=== PATIENT | female | born 1990 | race Caucasian/White ===

== ENCOUNTER → 2017-07-31 | Outpatient (CLI) | payer BC, SELFPAY | PROVIDERS: Visit Provider Internal Medicine | DX: R00.2 Palpitations (principal); R07.9 Chest pain, unspecified; R06.00 Dyspnea, unspecified; R94.31 Abnormal electrocardiogram [ECG] [EKG]; I49.3 Ventricular premature depolarization; G47.10 Hypersomnia, unspecified; R06.83 Snoring | CPT/HCPCS: 78452; 93017; A9502 ==

== ENCOUNTER → 2017-08-27 13:33 | Outpatient (CLI) | payer BC, SELFPAY ==
--- NOTE | 2017-08-27 13:41 | CA_ITS ---
PROCEDURE: 2-D M-mode and color Doppler study INDICATIONS FOR THE TEST: Chest pain X COPD Heart Murmur Tobacco Smoking PalpitationsX Fatigue Syncope Edema Hypertension Diabetes Mellitus Rheumatic Fever SOB DOEXObesity Hyperlipidemia Family History HD Additional History PATIENT INFORMATION HEIGHT: 67 WEIGHT:183 GENDER: Female B/P:150/80 2-D/M-MODE INTERPRETATION: 2-D MEASUREMENTS OBSERVED VALUES IN CMS Right Ventricular Dimension (RVDd) 1.9 Interventricular Septum (Thickness)(IVsd) .8 Left Ventricular Internal Dimensions(LVIDd) 5.7 Left Ventricular Posterior Wall (Thickness)(LVPWd) .8 Aortic Root 3.3 Aortic Cusp Separation 2.0 Left Atrial Dimensions (LAD) 3.0 2D 1. Left atrium is normal size, left ventricle is normal size, there is no concentric left ventricular hypertrophy, visually estimated ejection fraction 55% with no obvious regional wall motion abnormality. 2. The right atrium and right ventricle are normal size and contractility. 3. The aortic, mitral and tricuspid valves are grossly normal. 4. The pulmonic valve is poorly visualized. 5. No significant pericardial effusion noted DOPPLER INTERROGATION: Doppler interrogation of the aortic, mitral and tricuspid valvular presence of mild mitral and tricuspid regurgitation, tricuspid regurgitant jet velocity is insufficient for calculation of the right ventricular systolic pressure, diastolic parameters are within normal range. CONCLUSION: 1. Normal left ventricular size, preserved left ventricular systolic function, visually estimated ejection fraction 55% with no obvious regional wall motion abnormality, diastolic parameters are within normal range. 2. Mild mitral and tricuspid regurgitation. 3. No significant pericardial effusion noted.
== END ==
PROVIDERS: PCP Family Medicine; Visit Provider Internal Medicine
DX: R06.02 Shortness of breath (principal); R06.00 Dyspnea, unspecified; R06.01 Orthopnea; R07.89 Other chest pain; R07.8 Other chest pain; K21.9 Gastro-esophageal reflux disease without esophagitis; I10 Essential (primary) hypertension; R06.83 Snoring; I49.3 Ventricular premature depolarization; R00.2 Palpitations; G47.9 Sleep disorder, unspecified; R40.0 Somnolence
CPT/HCPCS: 93306

== ENCOUNTER → 2017-10-30 11:58 | Outpatient (CLI) | payer BC, SELFPAY ==
--- NOTE | 2017-10-30 12:05 | XR_ITS ---
EXAM: XR thoracic spine 3V HISTORY: ITS.REASON: NENA THORACIC BACK PAIN COMPARISON: None FINDINGS: Normal alignment. No fracture or dislocation. No lytic or blastic change. No significant degenerative change. The disc spaces are preserved. IMPRESSION: Negative thoracic spine
--- NOTE | 2017-10-30 12:05 | XR_ITS ---
EXAM: XR lumbar spine min 4V HISTORY: ITS.REASON: NENA THORACIC BACK PAIN ORDERING PHYSICIAN: Jojo Cox PATIENT AGE: 27 years COMPARISON: None FINDINGS: Normal alignment. No fracture or dislocation. No lytic or blastic change. There are minor hypertrophic changes of the facets superiorly at S1. IMPRESSION: No acute finding. Minimal facet hypertrophic change at S1
== END ==
PROVIDERS: PCP Family Medicine; Visit Provider Nurse Practitioner
DX: M54.6 Pain in thoracic spine (principal)
CPT/HCPCS: 72072; 72110

== ENCOUNTER → 2017-11-05 09:36 | Outpatient (CLI) | payer BC, SELFPAY ==
--- NOTE | 2017-11-05 09:52 | MR_ITS ---
MR lumbar spine wo con, MR 3-d myelogram/MRCP HISTORY: Low back pain with bilateral leg tingling and numbness ITS.REASON: BILATERAL LOW BACK PAIN ORDERING PHYSICIAN: Pablito Cook MD PATIENT AGE: 27 years COMPARISON: Radiograph of 10/30/2017 TECHNIQUE: Standard multiplanar multiecho sequences are performed without contrast. 3-D MIP and myelographic images are also rendered and reviewed FINDINGS: The spinal cord ends at the L1 level. There is normal alignment. No canal stenosis, disc herniation, or significant degenerative change evident. IMPRESSION: Negative MRI of the lumbar spine
== END ==
PROVIDERS: PCP Family Medicine; Visit Provider Family Medicine
DX: M54.5 Low back pain (principal)
CPT/HCPCS: 72148; 76376

== ENCOUNTER → 2017-11-14 10:43 | Outpatient (CLI) | payer BC, SELFPAY ==
--- NOTE | 2017-11-14 10:45 | US_ITS ---
US transvaginal Ordering Physician: Gabe Momin MD Patient Age: 27 years: Female HISTORY: ITS.REASON: pelvic painprevious surgery with uterus and left ovary removed Mostly right-sided pain for 2 months TECHNIQUE: Transvaginal pelvic ultrasound COMPARISON :Previous pelvic ultrasound June 2015. FINDINGS Uterus and the left ovary are surgically absent The right ovary is enlarged with probable hemorrhagic cyst.. . The right ovary measures 5 cm x 4 cm to 3.6 cm. Heterogeneous hypoechoic area within the right ovary measures 2.5 times over 3.1 length overall. Suspect it may reflect a hemorrhagic cyst but would benefit from follow-up study in 2-3 months particularly if persistent pelvic symptoms.. adequate color Doppler flow overall to the right ovary.. However the suspected hemorrhagic cyst with no significant color Doppler flow. There does appear to be a minimal vaguely evident l fluid collection just adjacent towards posterior margin the right ovary.. This fluid collection Measures 2.4 x 1.3 cm IMPRESSION: 1. Uterus and left ovary surgically absent Right ovary is enlarged and contains 3.1 x 2.5 cm heterogeneous hypoechoic area which most likely reflects a generous size hemorrhagic cyst . Also note Small fluid collection adjacent to this ovary. . Would suggest follow-up study in 2-3 months to further evaluate particularly if persistent pelvic symptoms.
== END ==
PROVIDERS: PCP Family Medicine; Visit Provider Obstetrics & Gynecology
DX: R10.2 Pelvic and perineal pain (principal)
CPT/HCPCS: 76830

== ENCOUNTER → 2017-12-13 13:09 | Outpatient (CLI) | payer BC, SELFPAY ==
--- NOTE | 2017-12-13 13:14 | US_ITS ---
US transvaginal HISTORY: Follow-up ovarian cyst ITS.REASON: PELVIC PAIN ORDERING PHYSICIAN: Gabe Momin MD PATIENT AGE: 27 years COMPARISON: 11/14/2017 FINDINGS: The uterus and left ovary have been surgically removed. The right ovary measures 4 x 2.6 x 3 cm. There are 2 cysts within the right ovary which measure 1.5 x 1.2 and 1.7 x 1.2 cm the previously noted hemorrhagic cyst has decreased in size from 3 x 2.6 cm to 1.5 x 1.2 cm. No cul-de-sac fluid evident. IMPRESSION: 1. Decrease in size of right hemorrhagic ovarian cyst. 2. There is an additional 1.7 cm simple cyst of the right ovary. 3. Prior hysterectomy and left oophorectomy
== END ==
PROVIDERS: PCP Family Medicine; Visit Provider Obstetrics & Gynecology
DX: R10.2 Pelvic and perineal pain (principal)
CPT/HCPCS: 76830

== ENCOUNTER → 2017-12-28 10:10 | Outpatient (CLI) | payer BC, SELFPAY ==
--- NOTE | 2017-12-28 12:57 | CT_ITS ---
CT abdomen pelvis w con CLINICAL INDICATION: Right lower quadrant pain ITS.REASON: ABDOMINAL PAIN ORDERING PHYSICIAN: Kenneth Prado MD PATIENT AGE: 27 years COMPARISON: None TECHNIQUE: Axial images obtained with sagittal and coronal reformats. All CT scans at the facility use one or more dose reduction, viz: automated exposure control; ma/kV adjustment per patient size (including targeted exams where dose is matched to indication; i.e. head); or iterative reconstruction technique. PROCEDURE: Oral Contrast: None IV Contrast: 75 mL's of Isovue-370. FINDINGS: The lung bases are clear. There is a nonspecific 4 mm isodensity in the hepatic dome laterally to small to categorize. The liver is otherwise unremarkable. Prior cholecystectomy without ductal dilatation. The spleen, adrenal glands, and pancreas are unremarkable. There is mild prominence of both renal pelves and ureters right greater than left. No definite ureteral calculus is evident in the urinary bladder is nondistended. This is nonspecific and could be related to prior obstruction or infection. Unremarkable appendix. No intestinal obstruction or free air. There has been prior hysterectomy. No pelvic mass or abnormal fluid collection or focal inflammatory change. There is a small circular area of increased density with central fat superior to the urinary bladder consistent with a small area of fat necrosis measuring 12 mm. IMPRESSION: 1. No acute intra-abdominal or pelvic findings. 2. Unremarkable appendix. 3. Mild ectasia of both renal collecting systems and ureters of unknown etiology. No obstructing stone or mass is evident at this time. This could be due urinary tract infection or prior obstruction.
== END ==
PROVIDERS: PCP Family Medicine; Visit Provider Family Medicine
DX: R10.31 Right lower quadrant pain (principal); R10.13 Epigastric pain
CPT/HCPCS: 74177; Q9967

== ENCOUNTER → 2017-12-29 08:45 | Outpatient (CLI) | payer BC, SELFPAY ==
[2017-12-29 08:52] LABS: MANUAL DIFFERENTIAL MANUAL DIFFERENTIAL (MANUAL DIFF)
[2017-12-29 09:24] LABS: Basophils # 0.1 K/mm3 (0-0.2); Basophils % 0.8 % (0.1-2.0); Eosinophils # 0.2 K/mm3 (0.0-0.4); Eosinophils % 2.2 % (0.1-12.0); Hematocrit 42.8 % (37.0-47.0); Hemoglobin 14.6 g/dL (12.2-16.2); Lymphocytes % 25.4 K/mm3 (10-50); Mean Corpuscular HGB Conc 34.1 g/dL (31.8-35.4); Mean Corpuscular Hemoglobin 33.1 pg (27.0-31.2); Monocytes # 0.5 K/mm3 (0.1-1.0); Monocytes % 6.2 % (1.7-9.3); Neutrophils # 5.1 K/mm3 (1.8-7.8); Neutrophils % 65.4 % (37.0-80.0); Platelet Count 262 K/mm3 (142-424); Red Blood Count 4.41 M/mm3 (4.20-5.40); Red Cell Distribution Width 11.9 % (11.5-17.5); White Blood Count 7.7 K/mm3 (4.8-10.8)
[2017-12-29 11:36] LABS: Alanine Aminotransferase 21 U/L (12-78); Albumin/Globulin Ratio 1.3 (1.1-1.8); Alkaline Phosphatase 68 U/L (46-116); Amylase 40 U/L (25-125); Anion Gap 15.1 mEq/L (5-15); Aspartate Amino Transferase 13 U/L (15-37); Bilirubin,Total 0.5 mg/dL (0.2-1.0); Blood Urea Nitrogen 10 mg/dL (7-18); Calcium 9.3 mg/dL (8.5-10.1); Carbon Dioxide 23 mmol/L (21.0-32.0); Chloride 102 mmol/L (98-107); Creatinine,Serum 0.81 mg/dL (0.55-1.02); Estimated Glomerular Filt Rate 85 ml/min (>60); GFR (African American) 103 ML/MIN (>60); Globulin 3.1 gm/dl (1.3-3.2); Glucose 100 mg/dL (74-106); Lipase 60 u/L (73-393); Potassium 4.1 mmoL/L (3.5-5.1); Sodium 136 mmol/L (136-145); Total Protein,Serum 7.1 gm/dL (6.4-8.2)
[2017-12-29 12:42] LABS: Lymphocytes % 34 % (10-50); Monocytes % 3 % (2-9); Neutrophils % 63 % (42-76); Platelet Estimate Normal; RBC Morphology Normal; Total Cells Counted 100
[2017-12-30 06:42] LABS: Iron 69 ug/dL (27-159); UIBC 227 ug/dL (131-425)
[2017-12-30 08:11] LABS: Folate 4.7 ng/mL (>3.0)
[2017-12-31 06:11] LABS: Iron Saturation 23 % (15-55); Vitamin B12 377 pg/mL (232-1245); Vitamin D 25 Hydroxy 43.3 ng/mL (30.0-100.0)
== END ==
PROVIDERS: Visit Provider Nurse Practitioner
DX: R10.31 Right lower quadrant pain (principal); R10.13 Epigastric pain; D64.9 Anemia, unspecified; E55.9 Vitamin D deficiency, unspecified; E53.8 Deficiency of other specified B group vitamins
CPT/HCPCS: 36415; 80053; 82150; 82607; 82652; 82746; 83550; 83690; 85007; 85014; 85018; 85048; 85049; 86677

== ENCOUNTER → 2018-01-09 11:49 | Outpatient (CLI) | payer BC, SELFPAY | PROVIDERS: Visit Provider Nurse Practitioner | DX: R10.13 Epigastric pain (principal) | CPT/HCPCS: 36415; 86617 ==

== ENCOUNTER → 2018-11-12 15:33 | Outpatient (CLI) | payer OTHER, SELFPAY ==
[2018-11-12 18:23] LABS: Thyroid Stimulating Hormone 1.27 uIU/ml (0.358-3.740)
== END ==
PROVIDERS: Visit Provider Obstetrics & Gynecology
DX: E03.9 Hypothyroidism, unspecified (principal)
CPT/HCPCS: 36415; 84443

== ENCOUNTER → 2018-11-18 09:17 | Outpatient (CLI) | payer OTHER, SELFPAY ==
--- NOTE | 2018-11-18 09:20 | US_ITS ---
US transvaginal HISTORY: ITS.REASON: Pelvic Pain ORDERING PHYSICIAN: Gabe Momin MD PATIENT AGE: 28 years Comparison: None FINDINGS: The uterus and left ovary are surgically absent. Vaginal, has an unremarkable appearance. The right ovary is enlarged measuring 8 x 5 x 7 cm. There is a 5 x 4 cm right ovarian cyst. This cyst appears simple without internal echoes or wall thickening. There is an additional 2 cm ovarian cyst. No cul-de-sac fluid is evident. IMPRESSION: Enlarged right ovary with ovarian cysts
== END ==
PROVIDERS: PCP Family Medicine; Visit Provider Obstetrics & Gynecology
DX: R10.2 Pelvic and perineal pain (principal)
CPT/HCPCS: 76830

== ENCOUNTER → 2018-11-21 14:49 | Outpatient (CLI) | payer OTHER, SELFPAY ==
[2018-11-23 18:05] LABS: Cancer Antigen (CA) 125 15.4 U/mL (0.0-38.1)
== END ==
PROVIDERS: Visit Provider Obstetrics & Gynecology
DX: R19.00 Intra-abdominal and pelvic swelling, mass and lump, unspecified site (principal)
CPT/HCPCS: 36415; 86316

== ENCOUNTER → 2018-12-05 13:47 | Outpatient (CLI) | payer OTHER, SELFPAY ==
[2018-12-05 13:49] LABS: Microscopic, Urine URINE MICROSCOPIC (MICROSCOPIC)
[2018-12-05 14:17] LABS: Appearance,Urine CLEAR (Clear); Bilirubin,Urine Negative (Negative); Blood, Urine Negative (Negative); Color,Urine YELLOW (Yellow); Glucose,Urine (UA) Negative (Negative); Ketones,Urine Negative (Negative); Leukocyte Esterase,Urine Negative (Negative); Nitrate,Urine Negative (Negative); Protein,Urine Negative (Negative); Specific Gravity, Urine >= 1.030 (1.005-1.030); Urobilinogen,Urine 0.2 EU/dl (0.2)
[2018-12-05 14:41] LABS: Basophils # 0.1 K/mm3 (0-0.2); Basophils % 0.8 % (0.1-2.0); Eosinophils # 0.1 K/mm3 (0.0-0.4); Eosinophils % 1.2 % (0.1-12.0); Hematocrit 42.4 % (37.0-47.0); Lymphocytes # 1.5 K/mm3 (0.7-4.5); Lymphocytes % 21.7 % (10-50); Mean Corpuscular Hemoglobin 32.5 pg (27.0-31.2); Mean Corpuscular Volume 98.5 fl (81-99); Mean Platelet Volume 7.6 fl (7.4-10.4); Monocytes # 0.5 K/mm3 (0.1-1.0); Monocytes % 6.6 % (1.7-9.3); Neutrophils # 4.7 K/mm3 (1.8-7.8); Neutrophils % 69.7 % (37.0-80.0); Platelet Count 277 K/mm3 (142-424); Red Blood Count 4.31 M/mm3 (4.20-5.40); Red Cell Distribution Width 12.1 % (11.5-17.5); White Blood Count 6.8 K/mm3 (4.8-10.8)
[2018-12-05 15:28] LABS: Bacteria,Urine Trace /lpf; WBC,Urine Occasional #/hpf (0-3)
[2018-12-05 18:56] LABS: Alanine Aminotransferase 23 U/L (12-78); Albumin Level 4.1 gm/dL (3.4-5.0); Albumin/Globulin Ratio 1.3 (1.1-1.8); Alkaline Phosphatase 60 U/L (46-116); Anion Gap 14.9 mEq/L (5-15); Aspartate Amino Transferase 7 U/L (15-37); Bilirubin,Total 0.4 mg/dL (0.2-1.0); Blood Urea Nitrogen 9 mg/dL (7-18); Calcium 9.4 mg/dL (8.5-10.1); Carbon Dioxide 27 mmol/L (21.0-32.0); Chloride 103 mmol/L (98-107); Creatinine,Serum 0.71 mg/dL (0.55-1.02); Estimated Glomerular Filt Rate 98 ml/min (>60); GFR (African American) 119 ML/MIN (>60); Globulin 3.2 gm/dl (1.3-3.2); Glucose 87 mg/dL (74-106); Potassium 4.9 mmoL/L (3.5-5.1); Sodium 140 mmol/L (136-145); Total Protein,Serum 7.3 gm/dL (6.4-8.2)
== END ==
PROVIDERS: Visit Provider Obstetrics & Gynecology
DX: Z01.818 Encounter for other preprocedural examination (principal); N94.9 Unspecified condition associated with female genital organs and menstrual cycle; R10.2 Pelvic and perineal pain
CPT/HCPCS: 36415; 80053; 81001; 85025

== ENCOUNTER → 2019-04-16 12:37 | Outpatient (CLI) | payer OTHER, SELFPAY ==
[2019-04-16 14:17] LABS: Anion Gap 15.2 mEq/L (5-15); Blood Urea Nitrogen 10 mg/dL (7-18); Calcium 8.9 mg/dL (8.5-10.1); Carbon Dioxide 26 mmol/L (21.0-32.0); Chloride 102 mmol/L (98-107); Creatinine,Serum 0.81 mg/dL (0.55-1.02); Estimated Glomerular Filt Rate 84 ml/min (>60); GFR (African American) 101 ML/MIN (>60); Glucose 104 mg/dL (74-106); Potassium 4.2 mmoL/L (3.5-5.1); Sodium 139 mmol/L (136-145)
== END ==
PROVIDERS: PCP Family Medicine; Visit Provider Internal Medicine Cardiovascular Disease
DX: G47.33 Obstructive sleep apnea (adult) (pediatric) (principal); R06.02 Shortness of breath; R53.83 Other fatigue; R40.0 Somnolence; I10 Essential (primary) hypertension
CPT/HCPCS: 36415; 80048; 95806

== ENCOUNTER → 2019-10-27 12:59 | Outpatient (CLI) | payer OTHER, SELFPAY ==
--- NOTE | 2019-10-27 13:06 | XR_ITS ---
PROCEDURE: XR CHEST 2V CLINICAL HISTORY: SOB COMPARISON: CXR CHEST(2 VIEWS-NOT PORTABLE) from 06/23/2017 FINDINGS: The cardiomediastinal silhouette and pulmonary vascularity are within normal limits. The lungs are clear without infiltrates, suspicious nodules, or pleural effusions. No acute bony abnormalities. IMPRESSION: No acute findings. Dictated by: Barrington Rodriguez MD 10/27/2019 13:39 Electronically signed by Barrington Rodriguez MD in [facility] 10/27/2019 13:39
== END ==
PROVIDERS: PCP Family Medicine; Visit Provider Family Medicine
DX: R06.02 Shortness of breath (principal)
CPT/HCPCS: 71046; 93306

== ENCOUNTER → 2020-01-09 15:28 | Outpatient (CLI) | payer OTHER, SELFPAY | PROVIDERS: Visit Provider Family Medicine | DX: R19.7 Diarrhea, unspecified (principal) | CPT/HCPCS: 87045; 87177 ==

== ENCOUNTER → 2021-06-24 08:51 | Outpatient (CLI) | payer MEDICAID, SELFPAY | PROVIDERS: PCP Family Medicine; Visit Provider Nurse Practitioner | DX: Z20.822 Contact with and (suspected) exposure to COVID-19 (principal) | CPT/HCPCS: C9803; U0003; U0005 ==

== ENCOUNTER 2023-02-13 22:16 | Emergency (ER) | payer SELFPAY ==
[2023-02-13 22:18] VITALS: BP 162/104; PULSE 110; RESP 18; TEMP 36.8; O2SAT 99; BMI 29.0
[2023-02-13 22:30] VITALS: BP 148/104; PULSE 107; O2SAT 98
[2023-02-13 23:00] VITALS: BP 132/97; PULSE 97; O2SAT 97
--- NOTE | 2023-02-13 23:06 | XR_ITS ---
PROCEDURE INFORMATION: Exam: XR Left Tibia and Fibula Exam date and time: 02/13/2023 11:04 PM Age: 33 years old Clinical indication: Pain; Lower leg; Left; Additional info: Left pain TECHNIQUE: Imaging protocol: Radiologic exam of the left tibia and fibula. Views: 2 views. COMPARISON: No relevant prior studies available. FINDINGS: Bones/joints: Normal. Soft tissues: Normal. IMPRESSION: No acute osseous findings.
--- NOTE | 2023-02-13 23:06 | XR_ITS ---
PROCEDURE INFORMATION: Exam: XR Left Knee Exam date and time: 02/13/2023 11:05 PM Age: 33 years old Clinical indication: Injury or trauma; Fall; Sprain or strain; Patella or knee; Left; Additional info: Fall, pain TECHNIQUE: Imaging protocol: Radiologic exam of the left knee. Views: 3 views. COMPARISON: CR XR TIBIA FIBULA LT 2V 02/13/2023 11:04 PM FINDINGS: Bones/joints: Normal. Soft tissues: Normal. IMPRESSION: No acute osseous findings.
--- NOTE | 2023-02-13 23:09 | PC.NURSE ---
Dr. Nichole at
--- NOTE | 2023-02-13 23:16 | [facility].EDGENADL ---
Discharge Plan Disposition Patient Disposition: Home, Self-Care Chief Complaint: PAIN Prescriptions Prescriptions: No Action sumatriptan succinate 100 mg tablet See Rx Instructions PO .COMPLEX Qty: 10 5RF Rx Instructions: take 1 tab at onset of headache; if no relief, may repeat 1 tab after at least 2 hrs; max = 2 tabs/24 hrs PO topiramate 25 mg tablet 25 mg PO BID Qty: 60 2RF Nurtec ODT 75 mg tablet,disintegrating 75 mg PO Q OTHER DAY PRN (Reason: migraine headache) Qty: 4 0RF Rx Instructions: samples provided Referrals Follow up/Referrals: Kenneth Prado MD [Primary Care Provider] - See instructions Ethan De La Garza DO [Staff Physician] - See instructions Clinical Impressions Clinical Impression: Internal derangement of knee Stand Alone Forms Stand Alone Forms: Work/School Release Instructions Patient Instructions: DI for Knee Pain Discharge ED Provider: Dionisio (ED),Gregorio Beckford General Adult HPI General Chief complaint: PAIN Stated complaint: left knee pain Time Seen by Provider: 02/13/23 23:00 Mode of Arrival: Wheelchair Source of Information: Patient and Medical Record Limitations: No Limitations Description of Symptoms (Recalled from ER Triage Doc. by RN): pt states severe knee and leg pain after a fall at 2pm. pt states that she had landed on her leg and the pain has gotten worse through the day. after the nap the pt has been unable to put weight on her left leg. the pt states that she feels pain in the back of the knee and under the knee worse. no obvious deformity. pain 3/10 at rest 10/10 when moving or standing History of Present Illness HPI narrative: acute injury to lt knee today with inc pain and dec wt bearing Onset (ago): hour(s) Location: lower extremity Severity: severe Consistency: constant Associated symptoms: denies other symptoms Related Data Previous Rx's Medication Instructions Recorded rimegepant 75 mg disintegrating 75 mg PO Q OTHER DAY PRN migraine 07/19/22 tablet (Nurtec ODT) headache #4 tabs sumatriptan succinate 100 mg tablet See Rx Instructions PO .COMPLEX 07/19/22 #10 tabs topiramate 25 mg tablet 25 mg PO BID #60 tabs 07/19/22 Allergies Allergy/AdvReac Type Severity Reaction Status Date / Time No Known Allergies Allergy Verified 07/19/22 16:13 [facility] Disclaimer: The information contained in this section may have been updated after the patient was seen, as this information can be updated by other users. Medical History (Updated 02/13/23 @ 23:58 by Gregorio Nichole (ED)MD) Essential hypertension Migraine headache Social History Smoking Status: Current every day smoker tobacco type: cigarettes packs per day: 1 alcohol intake: never substance use type: denies use current occupational status: employed Travel in the last 8 weeks: None household members: spouse current occupational exposures/hazards: No caffeine: Yes ROS Obtained: Yes All systems reviewed & no additional complaints except as documented Physical Exam General General appearance: alert Head Head exam: normocephalic Eye Eye exam: Present PERRL and EOMI ENT ENT exam: Present mucous membranes moist Neck Neck exam: Present trachea midline Respiratory Respiratory exam: Absent respiratory distress Cardiovascular Cardiovascular exam: Present regular rate Abdominal Exam Abdominal exam: Present soft Expanded Lower Extremity Exam Left: Knee exam: Present tenderness and swelling; Absent full ROM or effusion Lower leg exam: Present normal inspection Neurovascular/Tendon exam: Absent pulse deficit or motor deficit Gait: unable to bear weight Comment: has meninscal tenderness Neurological Exam Neurological exam: Present alert, oriented X3 and CN II-XII intact; Absent motor sensory deficit Psychiatric Psychiatric exam: Present normal affect Skin Skin exam: Absent rash Medical Decision Making Medic
--- NOTE | 2023-02-13 23:27 | PC.NURSE ---
Pt placed in a knee imobilizer and given crutches. Given verbal instructions on both and showed how to use properly. Pt advised that she understood instructions. CR
[2023-02-13 23:48] VITALS: BP 155/100; PULSE 75; RESP 18; TEMP 36.8; O2SAT 99
== END 2023-02-14 00:10 | disposition home or self-care (01) ==
PROVIDERS: Emergency Provider Emergency Medicine; PCP Family Medicine
DX: M23.92 Unspecified internal derangement of left knee (principal); W19.XXXA Unspecified fall, initial encounter; I10 Essential (primary) hypertension; F17.210 Nicotine dependence, cigarettes, uncomplicated; G43.909 Migraine, unspecified, not intractable, without status migrainosus
CPT/HCPCS: 73562; 73590; 99284